=== PATIENT | male | born 1930 | race Caucasian/White ===

== ENCOUNTER 2016-11-24 07:33 | Inpatient (IN) | payer MEDICARE, BC ==
[~2016-11-24] VITALS: Ht 170.2 cm; Wt 76.9 kg
--- NOTE | 2016-11-24 07:40 | NUR ---
bibra from home due to epigastric pain, 6-7/10 pain, non radiating. Denies n/v. No hematuria nor dysuria. Patient skin is warm to touch and non diaphoretic. Afebrile. Pt on sp bile duct stent plscement [address] [facility]. vss
[2016-11-24] MEDS ORDERED: HYDROCODONE/APAP 5/325MG 1 EACH TABLET ONE (07:49)
[2016-11-24] MEDS ORDERED: HYDROCODONE/APAP 5/325MG 1 EACH TABLET PO ONE (08:00)
--- NOTE | 2016-11-24 08:02 | NUR ---
iv accessed to lac #20.
[2016-11-24 08:10] LABS: BASOPHILS % (AUTO) 0.3 % (0.0-2.0); EOSINOPHILS # (AUTO) 0.4 /CMM (0.0-0.7); EOSINOPHILS % (AUTO) 3.7 % (0.0-6.0); HEMATOCRIT 31 % (39-51); HEMOGLOBIN 10.8 g/dL (13.5-17.5); LYMPHOCYTES # (AUTO) 1.4 /CMM (0.8-4.8); LYMPHOCYTES % (AUTO) 13.7 % (20.0-44.0); MEAN CORPUSCULAR HEMOGLOBIN 30 PG (26.0-33.0); MEAN CORPUSCULAR HGB CONC 35 g/dl (31.0-36.0); MEAN CORPUSCULAR VOLUME 87 fL (80-96); MONOCYTES # (AUTO) 0.6 /CMM (0.1-1.30); MONOCYTES % (AUTO) 5.6 % (2.0-12.0); NEUTROPHILS # (AUTO) 7.8 /CMM (1.8-8.9); NEUTROPHILS % (AUTO) 76.7 % (43.0-81.0); PLATELET COUNT (AUTO) 226 /CMM (150-450); RDW COEFFICIENT OF VARIATION 14.5 (11.5-15.0); WHITE BLOOD COUNT (AUTO) 10.2 K/uL (4.3-11.0)
[2016-11-24 08:16] LABS: CALCIUM, SERUM 9.2 mg/dL (8.5-10.1); CREATININE 1.5 mg/dL (0.6-1.3)
[2016-11-24 08:21] LABS: ALBUMIN 3.3 g/dL (3.4-5.0); BILIRUBIN,DIRECT 0.9 mg/dL (0.0-0.2); BILIRUBIN,TOTAL 1.3 mg/dL (0.2-1.0); TOTAL PROTEIN, SERUM 6.6 g/dL (6.4-8.2)
[2016-11-24 08:24] LABS: INR 0.99 (0.87-1.13); PROTHROMBIN TIME 10.7 SECS (9.5-12.7)
[2016-11-24] MEDS ORDERED: IV NS 0.9% 1,000 ML ONE (09:55)
[2016-11-24] MEDS ORDERED: IV NS 0.9% 1,000 ML BAG IV ONE (10:00)
--- NOTE | 2016-11-24 10:10 | NUR ---
PAGED DR. NAVA FOR CONSULT
[2016-11-24] MEDS ORDERED: TEMA15CA PO (10:17)
[2016-11-24] MEDS ORDERED: CETI-102 PO (10:17)
[2016-11-24] MEDS ORDERED: OMEG1CAP PO (10:17)
[2016-11-24] MEDS ORDERED: ASPI81TA2 PO (10:17)
[2016-11-24] MEDS ORDERED: ATEN25TA PO (10:17)
[2016-11-24] MEDS ORDERED: LISI-603 PO (10:17)
[2016-11-24] MEDS ORDERED: FURO20TA4 PO (10:17)
[2016-11-24] MEDS ORDERED: FINA5TAB11 PO (10:17)
[2016-11-24] MEDS ORDERED: SIMV10TA6 PO (10:17)
--- NOTE | 2016-11-24 10:28 | NUR ---
REPORT GIVEN TO BASILIO GEORGES FOR DEBBY
--- NOTE | 2016-11-24 11:53 | NUR ---
PT TRANSFERRED TO [facility] 2. VSS
--- NOTE | 2016-11-24 12:00 | NUR ---
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 Fully admitted. Awaiting orders.
[2016-11-24 12:42] VITALS: BP 129/48
--- NOTE | 2016-11-24 13:10 | NUR ---
MS/RN Heplock Heplock and name bands removed.
--- NOTE | 2016-11-24 13:10 | NUR ---
MS/RN S/B Dr Cameron Seen by Dr Cameron - patient to be discharged to home in stable condition and follow up with oncologist at [facility] on Saturday at 3p.
[2016-11-24] MEDS ORDERED: MAGNESIUM HYDROXIDE 30 ML UDC PO PRN (13:30)
[2016-11-24] MEDS ORDERED: SENNOSIDES 8.6 MG TABLET PO PRN (13:30)
[2016-11-24] MEDS ORDERED: BISACODYL (5 MG) 5 MG TABLET.DR PO PRN (13:30)
--- NOTE | 2016-11-24 13:40 | NUR ---
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 All personal belongings with patient and signed for on belongings list. Has follow up appointment already scheduled for Saturday with oncologist at [facility].
== END 2016-11-24 13:40 | disposition home or self-care (01) | DRG 391 ==
LOC: ER 07:36 → TELE-TD 10:18 → MEDSG2 12:01
PROVIDERS: ADMIT Internal Medicine; ATTEND Internal Medicine
DX: R10.9 Unspecified abdominal pain (principal); N17.0 Acute kidney failure with tubular necrosis; I10 Essential (primary) hypertension; E78.00 Pure hypercholesterolemia, unspecified; E66.9 Obesity, unspecified; E78.5 Hyperlipidemia, unspecified; K21.9 Gastro-esophageal reflux disease without esophagitis; N18.3 Chronic kidney disease, stage 3 (moderate); D63.8 Anemia in other chronic diseases classified elsewhere; R74.0 Nonspecific elevation of levels of transaminase and lactic acid dehydrogenase [LDH]; I12.9 Hypertensive chronic kidney disease with stage 1 through stage 4 chronic kidney disease, or unspecified chronic kidney disease; I25.10 Atherosclerotic heart disease of native coronary artery without angina pectoris; G89.18 Other acute postprocedural pain; Z85.89 Personal history of malignant neoplasm of other organs and systems; Z98.890 Other specified postprocedural states; Z68.26 Body mass index [BMI] 26.0-26.9, adult
CPT/HCPCS: 36415; 76705-TC; 80048-TC; 80076-TC; 83690-TC; 85025-TC; 85730-TC; 87081-TC; A4606; J7030; Z7610

== ENCOUNTER 2016-12-16 18:45 | Emergency (ER) | payer MEDICARE, BC ==
[~2016-12-16] VITALS: Ht 170.2 cm; Wt 75.3 kg
[~2016-12-16 18:45] MED LIST: ASPI81TA2 PO; ATEN25TA PO; CETI-102 PO; FINA5TAB11 PO; FURO20TA4 PO; LISI-603 PO; OMEG1CAP PO; SIMV10TA6 PO; TEMA15CA PO
[2016-12-16 19:30] LABS: BASOPHILS # (AUTO) 0.1 /CMM (0.0-0.2); BASOPHILS % (AUTO) 0.6 % (0.0-2.0); DIFF TOTAL % 100 %; EOSINOPHILS # (AUTO) 0.1 /CMM (0.0-0.7); EOSINOPHILS % (AUTO) 0.8 % (0.0-6.0); HEMATOCRIT 30 % (39-51); HEMOGLOBIN 10.1 g/dL (13.5-17.5); LYMPHOCYTES # (AUTO) 1.6 /CMM (0.8-4.8); MEAN CORPUSCULAR HEMOGLOBIN 29 PG (26.0-33.0); MEAN CORPUSCULAR HGB CONC 34 g/dl (31.0-36.0); MEAN CORPUSCULAR VOLUME 86 fL (80-96); MONOCYTES # (AUTO) 1.1 /CMM (0.1-1.30); MONOCYTES % (AUTO) 6.9 % (2.0-12.0); NEUTROPHILS # (AUTO) 13.3 /CMM (1.8-8.9); NEUTROPHILS % (AUTO) 81.7 % (43.0-81.0); PLATELET COUNT (AUTO) 377 /CMM (150-450); RED BLOOD CELL COUNT(AUTO) 3.52 MIL/uL (4.5-6.0); WHITE BLOOD COUNT (AUTO) 16.2 K/uL (4.3-11.0)
[2016-12-16 19:38] LABS: KETONES,URINE Negative (NEGATIVE); LEUKOCYTE ESTERASE ,URINE Negative (NEGATIVE); PH,URINE 5.5 (5.0-8.0)
[2016-12-16 19:39] LABS: ANION GAP 16 (5-14); CARBON DIOXIDE 24 mmol/L (21-32); CHLORIDE 98 mmol/L (98-107); CREATININE 1.6 mg/dL (0.6-1.3); GLUCOSE 101 mg/dL (74-106); POTASSIUM 4.5 mmol/L (3.5-5.1); SODIUM SERUM 134 mmol/L (136-145); UREA NITROGEN, BLOOD 33 mg/dL (7-18)
[2016-12-16 19:42] LABS: INR 1.06 (0.87-1.13); PROTHROMBIN TIME 11.1 SECS (9.5-12.7)
[2016-12-16 19:44] LABS: ALANINE AMINOTRANSFERASE 70 U/L (12-78); ALBUMIN 3.1 g/dL (3.4-5.0); ASPARTATE AMINOTRANSFERASE 28 U/L (15-37); BILIRUBIN,DIRECT 0.4 mg/dL (0.0-0.2); BILIRUBIN,TOTAL 0.7 mg/dL (0.2-1.0); INDIRECT BILIRUBIN 0.3 mg/dL (0.0-1.1); TOTAL PROTEIN, SERUM 7.4 g/dL (6.4-8.2)
[2016-12-16 19:44] LABS: ADD UA MICROSCOPIC YES
[2016-12-16 19:47] LABS: TROPONIN I < 0.017 ng/mL (0.00-0.056)
[2016-12-16 19:52] LABS: ADD URINE CULTURE NO; WBC,URINE 0-2 /HPF (0-3)
[2016-12-16 19:53] LABS: LACTIC ACID 1.5 mmol/L (0.4-2.0)
[2016-12-16] MEDS ORDERED: IV NS 0.9% 500 ML IV ONE ×2 (20:00→20:15)
[2016-12-16] MEDS ORDERED: IV SET PRIMARY 1 EA INFUS.SET MC ONE (20:15)
[2016-12-16] MEDS ORDERED: PIPERACILLIN /TAZOBACTAM 3.375 G in IV D5W 50 ML IV ONE (21:30)
[2016-12-16] MEDS ORDERED: IV SET PRIMARY PUMP SET 1 EA INFUS.SET MC ONE (21:52)
[2016-12-16] MEDS ORDERED: PIPERACILLIN /TAZOBACTAM 3.375 G VIAL IV ONE (21:52)
[2016-12-16] MEDS ORDERED: IV D5W 50 ML IV ONE (21:52)
[2016-12-16] MEDS ORDERED: MORPHINE SULFATE INJ 2 MG/ML DISP.SYRIN IV PRN (22:30)
[2016-12-16] MEDS ORDERED: Z GUARD REMEDY 2 OZ OINT TP PRN (22:30)
[2016-12-16] MEDS ORDERED: MAG HYDROX/AL HYDROX/SIMETH 30 ML UDC PO PRN (22:30)
[2016-12-16] MEDS ORDERED: HYDROCODONE/APAP 10/325MG 1 EA TABLET PO PRN (22:30)
[2016-12-16] MEDS ORDERED: ONDANSETRON HCL/PF 4 MG/2 ML VIAL IVP PRN (22:30)
[2016-12-16] MEDS ORDERED: ACETAMINOPHEN 325 MG TABLET PO PRN (22:30)
[2016-12-16] MEDS ORDERED: HYDROCODONE/APAP 5/325MG 1 EACH TABLET PO PRN (22:30)
[2016-12-16] MEDS ORDERED: ZOLPIDEM TARTRATE 5 MG TABLET PO PRN (22:30)
[2016-12-16] MEDS ORDERED: MAGNESIUM HYDROXIDE 30 ML UDC PO PRN (22:30)
[2016-12-16 22:51] VITALS: BP 146/55
[2016-12-17] MEDS ORDERED: PIPERACILLIN /TAZOBACTAM 4.5 G in IV D5W 50 ML IV SCH ×4 (05:00)
[2016-12-17] MEDS ORDERED: PANTOPRAZOLE 40 MG TABLET.DR PO SCH (07:30)
[2016-12-17] MEDS ORDERED: ASPIRIN 81 MG TAB.CHEW PO SCH (09:00)
[2016-12-17] MEDS ORDERED: SIMVASTATIN 10 MG TABLET PO SCH (09:00)
[2016-12-17] MEDS ORDERED: ATENOLOL 25 MG TABLET PO SCH (09:00)
[2016-12-17] MEDS ORDERED: FINASTERIDE (5 MG) 5 MG TABLET PO SCH (09:00)
[2016-12-17] MEDS ORDERED: TEMAZEPAM 15 MG CAPSULE PO SCH (22:00)
== END 2016-12-16 22:52 | disposition left against medical advice (07) ==
LOC: ER 18:48 → UNDOADMIN 22:05 → MEDSG2 22:05 → ER 22:52
DX: K81.0 Acute cholecystitis (principal); C22.1 Intrahepatic bile duct carcinoma; I10 Essential (primary) hypertension; E11.9 Type 2 diabetes mellitus without complications; D64.9 Anemia, unspecified; N17.0 Acute kidney failure with tubular necrosis; E78.5 Hyperlipidemia, unspecified; I25.110 Atherosclerotic heart disease of native coronary artery with unstable angina pectoris; K21.9 Gastro-esophageal reflux disease without esophagitis; F17.200 Nicotine dependence, unspecified, uncomplicated; Z79.82 Long term (current) use of aspirin
CPT/HCPCS: 36415; 71010; 74176; 80048; 80076; 81001; 83605; 83690; 84484; 85025; 85730; 87040 ×2; 87086; 93005; 96360; 96365; 99285; A4606; J2543; J7040; J7060; 81000-TC; Z7610